=== PATIENT | male | born 1965 | race Caucasian/White ===

== ENCOUNTER 2018-01-14 11:02 | Emergency (ER) | payer SELFPAY ==
[~2018-01-14] VITALS: Ht 175.3 cm; Wt 97.5 kg
[~2018-01-14 11:02] MED LIST: Augmentin 875-1 EACH PO; CODGUAEL PO; ERYT1OIN LEFTEYE; PRED10 PO
[2018-01-14] MEDS ORDERED: METPRE4DP PO (12:20)
[2018-01-14] MEDS ORDERED: IBUP600 PO (12:20)
== END 2018-01-14 12:27 | disposition home or self-care (01) ==
LOC: ER 11:02
DX: M75.51 Bursitis of right shoulder (principal); F17.210 Nicotine dependence, cigarettes, uncomplicated
CPT/HCPCS: 73030

== ENCOUNTER 2022-04-18 22:33 | Emergency (ER) | payer BC ==
[~2022-04-18] VITALS: Ht 175.3 cm; Wt 59.0 kg
[~2022-04-18 22:33] MED LIST changes: +IBUP600 PO; +METPRE4DP PO
[2022-04-18] MEDS ORDERED: Monodox100 MG PO (23:03)
== END 2022-04-18 23:43 | disposition home or self-care (01) ==
LOC: ER 22:33
DX: H60.12 Cellulitis of left external ear (principal); F17.210 Nicotine dependence, cigarettes, uncomplicated; Z79.82 Long term (current) use of aspirin
CPT/HCPCS: 99282; A9270